=== PATIENT | female | born 1985 | race Caucasian/White ===

== ENCOUNTER 2017-05-24 07:54 | Day surgery (SDC) | payer OTHER ==
[~2017-05-24] VITALS: Ht 165.1 cm; Wt 58.2 kg
[~2017-05-24 07:54] MED LIST: CeFAZolin 1 GM/DEXTROSE 50 ML IV ONE; LORazepam 2 MG/ML VIAL IVP PRN; SODIUM CHLORIDE 0.9% 1,000 ML IV ONE
[2017-05-24] MEDS ORDERED: CeFAZolin 1 GM/DEXTROSE 50 ML IV ONE (08:21)
[2017-05-24] MEDS ORDERED: SODIUM CHLORIDE 0.9% 1,000 ML IV ONE (08:21)
[2017-05-24] MEDS ORDERED: SODIUM CHLORIDE 0.9% 1,000 ML IV SCH (11:11)
[2017-05-24] MEDS ORDERED: HYDROmorphone HCL 2 MG TABLET PO ONE (11:15)
[2017-05-24] MEDS ORDERED: HYDROmorphone 2 MG/ML SYRINGE IVP PRN (11:15)
[2017-05-24] MEDS ORDERED: OxyCODONE HCL/ACETAMINOPHEN 5-325 MG TABLET PO PRN ×2 (11:15)
[2017-05-24] MEDS ORDERED: IBUPROFEN 600 MG TABLET ONE (12:04)
[2017-05-24] MEDS ORDERED: IBUPROFEN 600 MG TABLET PO ONE (12:15)
== END 2017-05-24 13:00 | disposition home or self-care (01) ==
LOC: SURGERY 07:54 → EDSTATUS 09:30 → SURGERY 13:00
PROVIDERS: ATTEND Radiology Diagnostic Radiology
DX: C50.912 Malignant neoplasm of unspecified site of left female breast (principal); R59.0 Localized enlarged lymph nodes; F32.9 Major depressive disorder, single episode, unspecified; Z98.890 Other specified postprocedural states
CPT/HCPCS: 19105 ×2; 84703; C2618; J0690; J7030